=== PATIENT | female | born 1945 ===

== ENCOUNTER 2017-03-27 08:29 | Emergency (ER) | payer OTHER ==
--- NOTE | 2017-03-27 09:07 | C.PDOC ---
History Of Present Illness 71 year old female presents to the ED with complaints of persistent tailbone pain since 02/03/2017 when she slipped and fell in [place]. Patient states she landed on her buttocks and pain has been localized and without improvement. She notes she has not taken pain medication for the pain and has not sought medical attention. Patient denies weakness, numbness, incontinence, or other complaints at this time. Time Seen by Provider: 03/27/17 08:50 Chief Complaint (Nursing): Back Pain History Per: Patient History/Exam Limitations: no limitations Onset/Duration Of Symptoms: Persistent (since 02/03/2017) Current Symptoms Are (Timing): Still Present Quality Of Discomfort: "Pain" Previous Symptoms: None Associated Symptoms: None Recent travel outside of the [place]: No Additional History Per: Family Past Medical History Reviewed: Historical Data, Nursing Documentation, Vital Signs Vital Signs: Last Vital Signs Temp 97.9 F 03/27/17 10:09 Pulse 75 03/27/17 10:09 Resp 16 03/27/17 10:09 BP 126/66 03/27/17 10:09 Pulse Ox 100 03/27/17 10:12 Family History: States: Unknown Family Hx - Social History Hx Alcohol Use: No Hx Substance Use: No Review Of Systems Constitutional: Negative for: Fever, Chills Cardiovascular: Negative for: Chest Pain Respiratory: Negative for: Cough, Shortness of Breath Gastrointestinal: Negative for: Nausea, Vomiting, Abdominal Pain Genitourinary: Negative for: Dysuria, Incontinence, Hematuria Musculoskeletal: Positive for: Back Pain Neurological: Negative for: Weakness, Numbness Physical Exam - Physical Exam Appears: Non-toxic, No Acute Distress Skin: Warm, Dry Head: Atraumatic, Normacephalic, No Tenderness Eye(s): bilateral: Normal Inspection, PERRL, EOMI Oral Mucosa: Moist Neck: Supple Chest: Symmetrical, No Deformity Cardiovascular: Rhythm Regular, No Murmur Respiratory: No Rales, No Rhonchi, No Wheezing, Other (clear to auscultation bilaterally ) Gastrointestinal/Abdominal: Soft, No Distention, No Guarding, No Rebound Extremity: Normal ROM, No Tenderness Neurological/Psych: Oriented x3 Gait: Steady ED Course And Treatment O2 Sat by Pulse Oximetry: 100 (RA) Pulse Ox Interpretation: Normal - Other Rad SACRUM COCCYX X-Ray: Interpreted by Me (NEG) Progress Note: Sacrum XR was ordered. Patient was given Motrin, Tylenol, and Lidoderm patch was applied. Reassessment Condition: Improved (FEELS BETTER W PATCH) Disposition Counseled Patient/Family Regarding: Studies Performed, Diagnosis, Need For Followup, Rx Given - Disposition Referrals: YOUR,PMD [Other] Disposition: HOME/ ROUTINE Disposition Time: 09:49 Condition: IMPROVED Additional Instructions: USE EL [employer]ORT[employer] DE ASIENTO DONUT SEGN SEA NECESARIO Prescriptions: Acetaminophen [Tylenol Extra Strength] 2 tab PO Q6 #30 tablet Ibuprofen [Motrin] 600 mg PO Q6 #30 tab Lidocaine 5% [Lidoderm] 1 ea TD PRN PRN #10 patch PRN Reason: Pain, Moderate (4-7) Instructions: Coccyx Injury (ED) Forms: [facility] [employer] (Welsh) Print Language: TRINIDADIAN - Clinical Impression Clinical Impression: Coccydynia - Scribe Statement The provider has reviewed the documentation as recorded by the Scribe Fiona May All medical record entries made by the Scribe were at my direction and personally dictated by me. I have reviewed the chart and agree that the record accurately reflects my personal performance of the history, physical exam, medical decision making, and the department course for this patient. I have also personally directed, reviewed, and agree with the discharge instructions and disposition.
[2017-03-27] MEDS ORDERED: Lidocaine 5% Patch TD STA (09:15)
[2017-03-27] MEDS ORDERED: Lidocaine 5% Patch TD ONE (09:21)
--- NOTE | 2017-03-27 09:51 | RAD ---
PROCEDURE: Radiographs of the Sacrum and Coccyx HISTORY: TRAUMA COMPARISON: None available. TECHNIQUE: Frontal and lateral views of the sacrum and coccyx FINDINGS: BONES: Sacrum and coccyx unremarkable. No fracture or focal lesion. SACROILIAC JOINTS: Unremarkable. OTHER FINDINGS: None. IMPRESSION: Unremarkable radiographs of the sacrum and coccyx.
[2017-03-27 10:10] VITALS: BP 126/66; PULSE 75; RESP 16; TEMP 97.9
[2017-03-27 10:12] VITALS: O2SAT 100
== END 2017-03-27 10:20 | disposition home or self-care (01) ==
LOC: C.ER 08:29
DX: M53.3 Sacrococcygeal disorders, not elsewhere classified (principal)